=== PATIENT | male | born 1980 | race Two or more races ===

== ENCOUNTER 2020-01-26 02:02 | Emergency (ER) | payer MEDICARE, MEDICAID ==
[~2020-01-26] VITALS: Ht 175.3 cm; Wt 97.5 kg
[2020-01-26 02:38] LABS: Urine Bacteria NONE SEEN /hpf (None Seen); Urine Blood Negative /uL (Negative); Urine Specific Gravity 1.007 (1.001-1.035); Urine WBC 4 /hpf (0 - 3)
[2020-01-26 03:25] VITALS: BP 148/103
== END 2020-01-26 03:45 | disposition home or self-care (01) ==
LOC: EDBD 02:05 → ER 02:05
DX: N39.0 Urinary tract infection, site not specified (principal); I10 Essential (primary) hypertension
CPT/HCPCS: 81001

== ENCOUNTER 2020-04-01 00:31 | Inpatient (IN) | payer MEDICARE, MEDICAID ==
[~2020-04-01] VITALS: Ht 170.2 cm; Wt 103.9 kg
[2020-04-01 01:30] LABS: Basophils # (auto) 0.1 10 ^3/uL (0-0.2); Basophils % (auto) 0.7 % (0.0-2.0); Eosinophils # (auto) 0.2 10 ^3/uL (0-0.8); Eosinophils % (auto) 2.4 % (0.0-7.0); Hematocrit 44.3 % (41.0-53.0); Hemoglobin 15.2 g/dL (13.5-17.5); Lymphocytes # (auto) 2.9 10 ^3/uL (0.4-5.4); Lymphocytes % (auto) 41.2 % (10.0-50.0); Mean Corpuscular Hemoglobin 31.1 pg (28.0-32.0); Mean Corpuscular Hgb Conc. 34.2 g/dL (32.0-36.0); Mean Corpuscular Volume 90.7 fL (80.0-100.0); Monocytes # (auto) 0.5 10 ^3/uL (0-1.3); Monocytes % (auto) 7.6 % (0.0-12.0); Neutrophils # (auto) 3.4 10 ^3/uL (1.6-8.6); Neutrophils % (auto) 48.1 % (37.0-80.0); Nucleated Red Blood Cells % 0.2 %; Platelet Count (auto) 283 10^3/uL (140-450); Red Blood Cells 4.89 10^6/uL (4.5-5.90); Red Cell Distribution Width 12.9 % (11.8-14.3)
[2020-04-01 01:47] LABS: INR 1.02 (0.9-1.15); Partial Thromboplastin Time 24.5 sec (23.0-31.2)
[2020-04-01 01:48] LABS: Albumin 3.9 g/dL (3.4-5.0); Calcium 8.3 mg/dL (8.5-10.1); Magnesium 2.2 mg/dL (1.6-2.6); Potassium 3.8 mmol/L (3.5-5.1)
[2020-04-01 01:57] LABS: Bilirubin, Total 0.2 mg/dL (0.2-1.0); Total Protein 8.3 g/dL (6.4-8.2)
[2020-04-01] MEDS ORDERED: ASPirin 81 mg TAB PO ONE ×2 (03:15)
[2020-04-01] MEDS ORDERED: NITROGLYCERIN 0.4 MG SL TAB SL PRN ×2 (03:15→06:15)
[2020-04-01] MEDS ORDERED: ATORVASTATIN 20 MG TAB PO ONE ×2 (03:15)
[2020-04-01] MEDS ORDERED: NITROGLYCERIN 2% OINT 1GM PKG TD ONE (03:15)
[2020-04-01] MEDS ORDERED: HYDROcodone-ACET 5/325MG TAB PO PRN (06:15)
[2020-04-01] MEDS ORDERED: ACETAMINOPHEN 325 MG TAB PO PRN (06:15)
[2020-04-01] MEDS ORDERED: ONDANSETRON HCL 4 MG/2 ML VIAL IV PRN ×2 (06:15→12:30)
[2020-04-01] MEDS ORDERED: MORPHINE SULF INJ 2 MG/ML SYRINGE 1ML IV PRN ×2 (06:15→12:30)
[2020-04-01] MEDS ORDERED: DOCUSATE SOD 100 MG CAP PO PRN (06:15)
[2020-04-01 07:24] LABS: Basophils # (auto) 0.1 10 ^3/uL (0-0.2); Basophils % (auto) 0.9 % (0.0-2.0); Eosinophils # (auto) 0.2 10 ^3/uL (0-0.8); Eosinophils % (auto) 2.7 % (0.0-7.0); Hematocrit 44.9 % (41.0-53.0); Hemoglobin 15.4 g/dL (13.5-17.5); Lymphocytes # (auto) 2.7 10 ^3/uL (0.4-5.4); Lymphocytes % (auto) 38.1 % (10.0-50.0); Mean Corpuscular Hemoglobin 31.6 pg (28.0-32.0); Mean Corpuscular Hgb Conc. 34.3 g/dL (32.0-36.0); Mean Corpuscular Volume 92.1 fL (80.0-100.0); Monocytes # (auto) 0.5 10 ^3/uL (0-1.3); Monocytes % (auto) 6.6 % (0.0-12.0); Neutrophils # (auto) 3.6 10 ^3/uL (1.6-8.6); Neutrophils % (auto) 51.7 % (37.0-80.0); Nucleated Red Blood Cells % 0.2 %; Platelet Count (auto) 284 10^3/uL (140-450); Red Blood Cells 4.88 10^6/uL (4.5-5.90); Red Cell Distribution Width 13.4 % (11.8-14.3)
[2020-04-01 07:34] LABS: Albumin 3.8 g/dL (3.4-5.0); Anion Gap 10 (5-15); Calcium 9.2 mg/dL (8.5-10.1); Carbon Dioxide 24 mmol/L (21-32); Chloride 102 mmol/L (98-107); Sodium 136 mmol/L (136-145)
[2020-04-01 07:41] LABS: Alanine Aminotransferase 42 U/L (16-61); Alkaline Phosphatase 76 U/L (45-117); Aspartate Aminotransferase 23 U/L (15-37); Bilirubin, Total 0.3 mg/dL (0.2-1.0); Blood Urea Nitrogen 9 mg/dL (7-18); Cholesterol 360 mg/dL (< 200); GFR African American 120 mL/min; GFR Non-African American 99 mL/min; Glucose 88 mg/dL (74-106); HDL Cholesterol 30 mg/dL (40-59); Total Protein 8.4 g/dL (6.4-8.2); Triglycerides 505 mg/dL (< 150)
[2020-04-01] MEDS ORDERED: ASPirin 81 mg TAB PO SCH (10:00)
[2020-04-01] MEDS ORDERED: ASPirin 325 MG TAB PO SCH (10:00)
[2020-04-01] MEDS: PANTOPRAZOLE 40 MG/10 ML VIAL INJ IV SCH (10:04)
[2020-04-01] MEDS: SODIUM CHLOR 0.9% PF (SALINE LOCK) 10ML VIAL/SYR IV SCH ×2 (12:18→23:57)
[2020-04-01] MEDS ORDERED: ACETAMINOPHEN 500 MG TAB PO PRN (12:30)
[2020-04-01] MEDS ORDERED: hydrALAZINE HCL 20 MG/ML VL IV PRN (12:30)
[2020-04-01] MEDS: METOPROLOL TARTRATE 25 MG TAB PO SCH (22:00)
[2020-04-01] MEDS: levETIRAcetam 500 MG TAB PO SCH (23:57)
[2020-04-01] MEDS: ATORVASTATIN 20 MG TAB PO SCH (23:57)
[2020-04-01] MEDS: HYDROcodone-ACET 5/325MG TAB PO PRN (23:59)
[2020-04-01] MEDS: ENOXAPARIN SOD 100 MG/1 ML SYRINGE SC SCH (23:59)
[2020-04-02] MEDS: SODIUM CHLOR 0.9% PF (SALINE LOCK) 10ML VIAL/SYR IV SCH ×3 (06:00→23:07)
[2020-04-02 07:03] LABS: Basophils # (auto) 0 10 ^3/uL (0-0.2); Basophils % (auto) 0.7 % (0.0-2.0); Eosinophils # (auto) 0.2 10 ^3/uL (0-0.8); Eosinophils % (auto) 3.9 % (0.0-7.0); Hematocrit 42.4 % (41.0-53.0); Hemoglobin 14.7 g/dL (13.5-17.5); Lymphocytes # (auto) 2.6 10 ^3/uL (0.4-5.4); Lymphocytes % (auto) 49.3 % (10.0-50.0); Mean Corpuscular Hemoglobin 31.6 pg (28.0-32.0); Mean Corpuscular Hgb Conc. 34.8 g/dL (32.0-36.0); Mean Corpuscular Volume 90.8 fL (80.0-100.0); Monocytes # (auto) 0.3 10 ^3/uL (0-1.3); Monocytes % (auto) 5.9 % (0.0-12.0); Neutrophils # (auto) 2.1 10 ^3/uL (1.6-8.6); Neutrophils % (auto) 40.2 % (37.0-80.0); Nucleated Red Blood Cells % 0.1 %; Platelet Count (auto) 255 10^3/uL (140-450); Red Blood Cells 4.67 10^6/uL (4.5-5.90); Red Cell Distribution Width 12.9 % (11.8-14.3); White Blood Cell 5.3 10^3/uL (4.4-10.8)
[2020-04-02 07:13] LABS: Potassium 3.7 mmol/L (3.5-5.1)
[2020-04-02 07:24] LABS: Albumin 3.3 g/dL (3.4-5.0); Bilirubin, Total 0.4 mg/dL (0.2-1.0); Calcium 8.3 mg/dL (8.5-10.1); Total Protein 7.4 g/dL (6.4-8.2)
[2020-04-02] MEDS: ASPirin 81 mg TAB PO SCH (09:11)
[2020-04-02] MEDS: PANTOPRAZOLE 40 MG/10 ML VIAL INJ IV SCH (09:11)
[2020-04-02] MEDS: FAMOTIDINE 20 MG TAB PO SCH (09:12)
[2020-04-02] MEDS: METOPROLOL TARTRATE 25 MG TAB PO SCH ×2 (09:12→23:06)
[2020-04-02] MEDS: levETIRAcetam 500 MG TAB PO SCH ×2 (09:12→23:07)
[2020-04-02] MEDS: NITROGLYCERIN 0.4MG/HR TOPICAL PATCH TD SCH (09:13)
[2020-04-02] MEDS: ENOXAPARIN SOD 100 MG/1 ML SYRINGE SC SCH ×2 (11:24→23:05)
[2020-04-02 22:00] VITALS: BP 116/71
[2020-04-02] MEDS: ATORVASTATIN 20 MG TAB PO SCH (23:05)
[2020-04-02] MEDS: GEMFIBROZIL 600 MG TAB PO SCH (23:06)
[2020-04-03] VITALS (7 sets, daily range): BP systolic 98–122; BP diastolic 57–71
[2020-04-03] MEDS ORDERED: MAGN400T40 PO (01:20)
[2020-04-03] MEDS ORDERED: PHEN32.44 PO (01:20)
[2020-04-03] MEDS ORDERED: ZONI100C43 PO (01:20)
[2020-04-03] MEDS ORDERED: LISI-648 PO (01:20)
[2020-04-03] MEDS ORDERED: ESCI20TA51 PO (01:20)
[2020-04-03] MEDS ORDERED: DIVA250T12 PO (01:20)
[2020-04-03] MEDS ORDERED: OXCA600T3 PO (01:20)
[2020-04-03] MEDS: SODIUM CHLOR 0.9% PF (SALINE LOCK) 10ML VIAL/SYR IV SCH ×3 (07:15→22:12)
[2020-04-03] MEDS: levETIRAcetam 500 MG TAB PO SCH ×2 (09:55→22:12)
[2020-04-03] MEDS: FAMOTIDINE 20 MG TAB PO SCH (09:55)
[2020-04-03] MEDS: ASPirin 81 mg TAB PO SCH (09:55)
[2020-04-03] MEDS: PANTOPRAZOLE 40 MG/10 ML VIAL INJ IV SCH (09:56)
[2020-04-03] MEDS: GEMFIBROZIL 600 MG TAB PO SCH ×2 (09:57→22:15)
[2020-04-03] MEDS: ENOXAPARIN SOD 100 MG/1 ML SYRINGE SC SCH ×2 (10:00→22:15)
[2020-04-03] MEDS: NITROGLYCERIN 0.4MG/HR TOPICAL PATCH TD SCH (10:00)
[2020-04-03] MEDS: METOPROLOL TARTRATE 25 MG TAB PO SCH ×2 (10:00→22:15)
[2020-04-03] MEDS: HYDROcodone-ACET 5/325MG TAB PO PRN (20:57)
[2020-04-03] MEDS: ATORVASTATIN 20 MG TAB PO SCH (22:15)
[2020-04-04 05:00] VITALS: BP 110/66
[2020-04-04] MEDS: SODIUM CHLOR 0.9% PF (SALINE LOCK) 10ML VIAL/SYR IV SCH ×3 (05:32→22:38)
[2020-04-04 08:00] VITALS: BP 115/76
[2020-04-04] MEDS: PANTOPRAZOLE 40 MG/10 ML VIAL INJ IV SCH (09:29)
[2020-04-04] MEDS: levETIRAcetam 500 MG TAB PO SCH ×2 (09:29→22:38)
[2020-04-04] MEDS: ENOXAPARIN SOD 100 MG/1 ML SYRINGE SC SCH ×2 (09:29→22:40)
[2020-04-04] MEDS: FAMOTIDINE 20 MG TAB PO SCH (09:29)
[2020-04-04] MEDS: ASPirin 81 mg TAB PO SCH (09:29)
[2020-04-04] MEDS: GEMFIBROZIL 600 MG TAB PO SCH ×2 (09:29→22:38)
[2020-04-04] MEDS: NITROGLYCERIN 0.4MG/HR TOPICAL PATCH TD SCH (09:30)
[2020-04-04] MEDS: METOPROLOL TARTRATE 25 MG TAB PO SCH ×2 (09:30→22:40)
[2020-04-04 17:00] VITALS: BP 112/74
[2020-04-04 20:00] VITALS: BP 107/68
[2020-04-04] MEDS: ATORVASTATIN 20 MG TAB PO SCH (22:38)
[2020-04-05 05:37] VITALS: BP 110/74
[2020-04-05] MEDS: SODIUM CHLOR 0.9% PF (SALINE LOCK) 10ML VIAL/SYR IV SCH ×3 (06:25→22:08)
[2020-04-05] MEDS ORDERED: ADENOSINE 87 MG in GIVE UN-DILUTED 0 ML IV STA (08:23)
[2020-04-05 09:00] VITALS: BP 116/78
[2020-04-05] MEDS: METOPROLOL TARTRATE 25 MG TAB PO SCH ×2 (10:00→22:00)
[2020-04-05] MEDS: levETIRAcetam 500 MG TAB PO SCH ×2 (10:21→22:09)
[2020-04-05] MEDS: GEMFIBROZIL 600 MG TAB PO SCH ×2 (10:22→22:09)
[2020-04-05] MEDS: FAMOTIDINE 20 MG TAB PO SCH (10:26)
[2020-04-05] MEDS: ASPirin 81 mg TAB PO SCH (10:27)
[2020-04-05] MEDS: ENOXAPARIN SOD 100 MG/1 ML SYRINGE SC SCH ×2 (10:28→22:10)
[2020-04-05] MEDS: LISINOPRIL 20 MG TAB PO SCH (10:28)
[2020-04-05] MEDS: NITROGLYCERIN 0.4MG/HR TOPICAL PATCH TD SCH (10:30)
[2020-04-05] MEDS: PANTOPRAZOLE 40 MG/10 ML VIAL INJ IV SCH (10:31)
[2020-04-05] MEDS ORDERED: LORazepam 2MG/ML-1ML VIAL IV PRN (11:00)
[2020-04-05 13:00] VITALS: BP 129/84
[2020-04-05] MEDS: OXcarbazepine 300 MG TAB PO SCH ×2 (14:11→22:10)
[2020-04-05] MEDS: HYDROcodone-ACET 5/325MG TAB PO PRN (17:24)
[2020-04-05 17:30] VITALS: BP 93/65
[2020-04-05 21:30] VITALS: BP 107/68
[2020-04-05] MEDS ORDERED: PHENobarbital 32.4 MG TAB PO ONE (22:00)
[2020-04-05] MEDS: ATORVASTATIN 20 MG TAB PO SCH (22:09)
[2020-04-06] MEDS: SODIUM CHLOR 0.9% PF (SALINE LOCK) 10ML VIAL/SYR IV SCH ×3 (05:42→21:38)
[2020-04-06] MEDS: OXcarbazepine 300 MG TAB PO SCH ×3 (05:43→21:36)
[2020-04-06 09:00] VITALS: BP 106/63
[2020-04-06] MEDS: levETIRAcetam 500 MG TAB PO SCH ×2 (09:55→21:36)
[2020-04-06] MEDS: PANTOPRAZOLE 40 MG/10 ML VIAL INJ IV SCH (09:55)
[2020-04-06] MEDS: ASPirin 81 mg TAB PO SCH (09:55)
[2020-04-06] MEDS: GEMFIBROZIL 600 MG TAB PO SCH ×2 (09:55→21:36)
[2020-04-06] MEDS: LISINOPRIL 20 MG TAB PO SCH (09:56)
[2020-04-06] MEDS: FAMOTIDINE 20 MG TAB PO SCH (09:56)
[2020-04-06] MEDS: METOPROLOL TARTRATE 25 MG TAB PO SCH ×2 (09:56→21:40)
[2020-04-06] MEDS: ENOXAPARIN SOD 100 MG/1 ML SYRINGE SC SCH ×2 (09:57→21:38)
[2020-04-06] MEDS: NITROGLYCERIN 0.4MG/HR TOPICAL PATCH TD SCH (09:57)
[2020-04-06 13:00] VITALS: BP 107/74
[2020-04-06 16:47] VITALS: BP 120/77
[2020-04-06 20:00] VITALS: BP 103/66
[2020-04-06] MEDS: ATORVASTATIN 20 MG TAB PO SCH (21:36)
[2020-04-07 05:00] VITALS: BP 109/68
[2020-04-07] MEDS: SODIUM CHLOR 0.9% PF (SALINE LOCK) 10ML VIAL/SYR IV SCH ×2 (05:55→14:33)
[2020-04-07] MEDS: OXcarbazepine 300 MG TAB PO SCH ×2 (05:55→14:33)
[2020-04-07] MEDS ORDERED: LIDOCAINE 2%HCL (LOCAL ANESTH.) INJ 20ML MDV ONE (08:36)
[2020-04-07 08:44] VITALS: BP 109/71
[2020-04-07] MEDS ORDERED: fentaNYL CITRATE 100 MCG/2 ML VL ONE (09:03)
[2020-04-07] MEDS ORDERED: SODIUM CHL 0.9% 50 ML ONE (09:03)
[2020-04-07] MEDS ORDERED: ANGIOMAX 250 MG VIAL IV ONE (09:03)
[2020-04-07] MEDS ORDERED: MIDAZOLAM HCL 1MG/1ML-2 ML VIAL ONE (09:03)
[2020-04-07] MEDS ORDERED: ASPirin 81 mg TAB ONE (09:41)
[2020-04-07] MEDS ORDERED: TICAGRELOR 90 MG TAB ONE (09:42)
[2020-04-07] MEDS: METOPROLOL TARTRATE 25 MG TAB PO SCH (10:00)
[2020-04-07] MEDS: ASPirin 81 mg TAB PO SCH (10:00)
[2020-04-07] MEDS: ENOXAPARIN SOD 100 MG/1 ML SYRINGE SC SCH (10:00)
[2020-04-07] MEDS: NITROGLYCERIN 0.4MG/HR TOPICAL PATCH TD SCH (10:00)
[2020-04-07] MEDS: PANTOPRAZOLE 40 MG/10 ML VIAL INJ IV SCH (11:24)
[2020-04-07] MEDS: GEMFIBROZIL 600 MG TAB PO SCH (11:25)
[2020-04-07] MEDS: levETIRAcetam 500 MG TAB PO SCH (11:25)
[2020-04-07] MEDS: FAMOTIDINE 20 MG TAB PO SCH (11:25)
[2020-04-07] MEDS: LISINOPRIL 20 MG TAB PO SCH (11:25)
[2020-04-07 13:01] VITALS: BP 110/69
[2020-04-07 16:50] VITALS: BP 117/75
[2020-04-07 17:20] VITALS: BP 117/75
[2020-04-07] MEDS ORDERED: TICAGRELOR 90 MG TAB PO SCH (22:00)
== END 2020-04-07 19:05 | disposition home or self-care (01) | DRG 247 ==
LOC: ER 00:31 → TELE 00:32 → TELE-CENTR 04-02 21:25 → TELE-WESTW 04-02 21:30 → TELE-CENTR 04-03 21:40
PROVIDERS: ADMIT Nurse Practitioner Family; ATTEND Family Medicine
PROC: 027034Z Dilation of Coronary Artery, One Artery with Drug-eluting Intraluminal Device, Percutaneous Approach (ICD-10-PCS; principal; 2020-04-07)
PROC: B2111ZZ Fluoroscopy of Multiple Coronary Arteries using Low Osmolar Contrast (ICD-10-PCS; 2020-04-07)
PROC: 4A023N7 Measurement of Cardiac Sampling and Pressure, Left Heart, Percutaneous Approach (ICD-10-PCS; 2020-04-07)
DX: I21.4 Non-ST elevation (NSTEMI) myocardial infarction (principal); I20.9 Angina pectoris, unspecified; I10 Essential (primary) hypertension; G40.909 Epilepsy, unspecified, not intractable, without status epilepticus; F32.9 Major depressive disorder, single episode, unspecified; E78.5 Hyperlipidemia, unspecified; E66.9 Obesity, unspecified; Z83.3 Family history of diabetes mellitus; Z98.61 Coronary angioplasty status; Z68.35 Body mass index [BMI] 35.0-35.9, adult; Z20.828 Contact with and (suspected) exposure to other viral communicable diseases
CPT/HCPCS: 36415; 71046; 78452; 80053; 80061; 83735; 83880; 84484; 85025; 85379; 85610; 85730; 86141; 87426; 92928; 93005; 93017; 93306; 93454; 99152; C1874; C1887; C9113; G0378; J0153; J2250; J7060

== ENCOUNTER 2020-09-27 00:21 | Emergency (ER) | payer OTHER ==
[~2020-09-27] VITALS: Ht 157.5 cm; Wt 90.7 kg
[~2020-09-27 00:21] MED LIST: DIVA250T12 PO; ESCI-34 PO; LISI-716 PO; MAGN400T40 PO; OXCA600T3 PO; PHEN32.44 PO; ZONI100C43 PO
[2020-09-27 01:28] LABS: Hemoglobin 14.3 g/dL (13.5-17.5); White Blood Cell 5.5 10^3/uL (4.4-10.8)
[2020-09-27 01:38] LABS: Basophils # (auto) 0 10 ^3/uL (0-0.2); Basophils % (auto) 0.9 % (0.0-2.0); Eosinophils # (auto) 0.2 10 ^3/uL (0-0.8); Eosinophils % (auto) 3.5 % (0.0-7.0); Hematocrit 40.7 % (41.0-53.0); Lymphocytes # (auto) 2.3 10 ^3/uL (0.4-5.4); Lymphocytes % (auto) 42.1 % (10.0-50.0); Mean Corpuscular Hemoglobin 31.7 pg (28.0-32.0); Mean Corpuscular Hgb Conc. 35.1 g/dL (32.0-36.0); Mean Corpuscular Volume 90.4 fL (80.0-100.0); Monocytes # (auto) 0.4 10 ^3/uL (0-1.3); Monocytes % (auto) 7.2 % (0.0-12.0); Neutrophils # (auto) 2.6 10 ^3/uL (1.6-8.6); Neutrophils % (auto) 46.3 % (37.0-80.0); Nucleated Red Blood Cells % 0.2 %; Platelet Count (auto) 300 10^3/uL (140-450); Red Cell Distribution Width 12.6 % (11.8-14.3)
[2020-09-27 01:42] LABS: Albumin 3.6 g/dL (3.4-5.0); Anion Gap 5 (5-15); BUN/Creatinine Ratio 15.2; Blood Urea Nitrogen 14 mg/dL (7-18); Carbon Dioxide 30 mmol/L (21-32); Chloride 106 mmol/L (98-107); GFR African American 116 mL/min; GFR Non-African American 96 mL/min; Glucose 97 mg/dL (74-106); Potassium 4.1 mmol/L (3.5-5.1); Sodium 141 mmol/L (136-145)
[2020-09-27 01:51] LABS: Alanine Aminotransferase 38 U/L (16-61); Alkaline Phosphatase 109 U/L (45-117); Aspartate Aminotransferase 37 U/L (15-37); Bilirubin, Total 0.2 mg/dL (0.2-1.0); Total Protein 7.8 g/dL (6.4-8.2)
[2020-09-27] MEDS ORDERED: ACETAMINOPHEN 325 MG TAB PO ONE (03:45)
[2020-09-27 05:16] VITALS: BP 129/90
== END 2020-09-27 05:30 | disposition home or self-care (01) ==
LOC: ER 00:21
DX: T14.8XXA Other injury of unspecified body region, initial encounter (principal); M54.2 Cervicalgia; M25.511 Pain in right shoulder; M25.561 Pain in right knee; I10 Essential (primary) hypertension; E78.5 Hyperlipidemia, unspecified; Z90.49 Acquired absence of other specified parts of digestive tract; Z79.899 Other long term (current) drug therapy; X58.XXXA Exposure to other specified factors, initial encounter; Y93.89 Activity, other specified; Y92.89 Other specified places as the place of occurrence of the external cause; Y99.8 Other external cause status
CPT/HCPCS: 36415; 71045; 73562; 80053; 84484; 85025; 93005